=== PATIENT | male | born 1985 | race Caucasian/White ===

== ENCOUNTER → 2017-12-24 | Outpatient (CLI) | payer MEDICAID ==
[2017-12-24 16:54] LABS: ALBUMIN 4.4 g/dL (3.5-5.0); BUN/CREATININE RATIO 18.5 (6.0-26.0); CALCIUM 9.6 mg/dL (8.4-10.2); TOTAL BILIRUBIN 0.4 mg/dL (0.2-1.3); TOTAL PROTEIN 7.9 g/dL (6.3-8.2)
[2017-12-24 17:24] LABS: EOS # 0.1 (0.04-0.40); EOS % 1.6 % (0.0-4.0); HEMATOCRIT 44.4 % (42.0-52.0); HEMOGLOBIN 14.7 g/dL (13.5-18.0); MEAN CELL VOLUME 85 fl (78-100); MEAN CORPUSCULAR HEMOGLOBIN 28 pg (27-31); MEAN CORPUSCULAR HGB CONC 33 g/dL (33-37); MEAN PLATELET VOLUME 10.7 fl (7.4-10.4); MONO # 0.7 (0.20-0.80); NEU # 3.6 (1.40-6.50); PLATELET COUNT 291 K/mm3 (130-400); RED BLOOD COUNT 5.25 M/mm3 (4.20-5.60); RED CELL DISTRIBUTION WIDTH 13.2 % (11.5-14.5); WHITE BLOOD COUNT 6.4 K/mm3 (4.8-10.8)
== END ==
LOC: LAB 16:18
PROVIDERS: Nurse Practitioner Family
DX: R10.11 Right upper quadrant pain (principal)

== ENCOUNTER 2018-06-16 08:57 | Emergency (ER) | payer MEDICAID ==
[~2018-06-16] VITALS: Ht 172.7 cm; Wt 111.8 kg
[2018-06-16] MEDS ORDERED: ZANTAC150 M1 PO (09:34)
[2018-06-16 09:48] LABS: HEMATOCRIT 42.6 % (42.0-52.0); HEMOGLOBIN 14.4 g/dL (13.5-18.0); MEAN CELL VOLUME 85 fl (78-100); MEAN CORPUSCULAR HEMOGLOBIN 29 pg (27-31); MEAN CORPUSCULAR HGB CONC 34 g/dL (33-37); PLATELET COUNT 221 K/mm3 (130-400); RED BLOOD COUNT 5.02 M/mm3 (4.20-5.60); RED CELL DISTRIBUTION WIDTH 13.3 % (11.5-14.5); WHITE BLOOD COUNT 9.3 K/mm3 (4.8-10.8)
[2018-06-16 10:00] LABS: ALBUMIN 4.3 g/dL (3.5-5.0); POTASSIUM 3.7 mmol/L (3.6-5.0); TOTAL BILIRUBIN 0.9 mg/dL (0.2-1.3); TOTAL PROTEIN 7.1 g/dL (6.3-8.2)
[2018-06-16 10:06] LABS: BAND 3 % (0-10); LYMPHOCYTE 13 % (20-51); MONOCYTE 2 % (3-10); NEUTROPHILS 82 % (42-75)
[2018-06-16 10:20] LABS: URINE APPEARANCE HAZY; URINE BILIRUBIN NEGATIVE (NEGATIVE); URINE BLOOD NEGATIVE (NEGATIVE); URINE COLOR AMBER; URINE GLUCOSE NEGATIVE (NEGATIVE); URINE KETONE NEGATIVE (NEGATIVE); URINE LEUKOCYTE ESTERASE NEGATIVE (NEGATIVE); URINE NITRATE NEGATIVE (NEGATIVE); URINE PROTEIN(semi-quant) NEGATIVE (NEGATIVE); URINE UROBILINOGEN NORMAL (NORMAL)
[2018-06-16 10:21] LABS: URINE MUCUS PRESENT (NOT PRESENT)
[2018-06-16] MEDS ORDERED: ZOFRAN ODT4 MG PO (14:35)
[2018-06-16 15:00] VITALS: BP 134/78
== END 2018-06-16 15:00 | disposition home or self-care (01) ==
LOC: ED 08:57
PROVIDERS: Family Medicine
DX: E86.9 Volume depletion, unspecified (principal); B34.9 Viral infection, unspecified
CPT/HCPCS: J1885; J2405; J7030

== ENCOUNTER 2018-09-12 20:57 | Emergency (ER) | payer OTHER, MEDICAID ==
[~2018-09-12] VITALS: Ht 172.7 cm; Wt 113.6 kg
[~2018-09-12 20:57] MED LIST: ZANTAC150 M1 PO; ZOFRAN ODT4 MG PO
[2018-09-12 21:23] LABS: EOS # 0.1 (0.04-0.40); EOS % 0.8 % (0.0-4.0); HEMATOCRIT 45.1 % (42.0-52.0); MEAN CELL VOLUME 84 fl (78-100); MEAN CORPUSCULAR HEMOGLOBIN 28 pg (27-31); MEAN CORPUSCULAR HGB CONC 33 g/dL (33-37); MEAN PLATELET VOLUME 10.3 fl (7.4-10.4); MONO # 0.7 (0.20-0.80); NEU # 5.8 (1.40-6.50); PLATELET COUNT 248 K/mm3 (130-400); RED BLOOD COUNT 5.37 M/mm3 (4.20-5.60); RED CELL DISTRIBUTION WIDTH 13.1 % (11.5-14.5); WHITE BLOOD COUNT 8.6 K/mm3 (4.8-10.8)
[2018-09-12 21:34] LABS: ALBUMIN 4.8 g/dL (3.5-5.0); CALCIUM 9.9 mg/dL (8.4-10.2); POTASSIUM 3.7 mmol/L (3.6-5.0); TOTAL BILIRUBIN 0.6 mg/dL (0.2-1.3); TOTAL PROTEIN 7.9 g/dL (6.3-8.2)
[2018-09-13 00:38] VITALS: BP 142/84
[2018-09-13] MEDS ORDERED: CYCLOBENZAPRINE10 M1 PO (13:48)
== END 2018-09-13 00:20 | disposition home or self-care (01) ==
LOC: ED 20:57
PROVIDERS: Nurse Practitioner Family
DX: R07.89 Other chest pain (principal); F41.9 Anxiety disorder, unspecified; F43.9 Reaction to severe stress, unspecified; Z82.49 Family history of ischemic heart disease and other diseases of the circulatory system
CPT/HCPCS: J7030

== ENCOUNTER 2018-09-13 12:32 | Emergency (ER) | payer OTHER, MEDICAID ==
[2018-09-13] MEDS ORDERED: CYCLOBENZAPRINE10 M1 PO (13:48)
[2018-09-13 13:54] VITALS: BP 147/95
== END 2018-09-13 13:54 | disposition home or self-care (01) ==
LOC: ED 12:32
DX: M54.12 Radiculopathy, cervical region (principal); R07.89 Other chest pain; F41.9 Anxiety disorder, unspecified; F17.200 Nicotine dependence, unspecified, uncomplicated
CPT/HCPCS: J1885; J2360

== ENCOUNTER → 2020-09-04 | Outpatient (CLI) | payer BC ==
[~2020-09-04] MED LIST changes: +CYCLOBENZAPRINE10 M1 PO
== END ==
LOC: LAB 14:15
DX: R05 Cough (principal); R51.9 Headache, unspecified; R09.81 Nasal congestion; R19.7 Diarrhea, unspecified; R53.83 Other fatigue; Z20.828 Contact with and (suspected) exposure to other viral communicable diseases

== ENCOUNTER 2021-02-27 17:06 | Emergency (ER) | payer BC ==
[2021-02-27] MEDS ORDERED: AUGMENTIN 875-1 EAC1 PO (19:13)
[2021-02-27 19:35] VITALS: BP 169/108
[2021-03-22] MEDS ORDERED: CLOTRIMAZOLE30 ML TP (10:09)
== END 2021-02-27 19:35 | disposition home or self-care (01) ==
LOC: ED 17:06
DX: H92.01 Otalgia, right ear (principal); J34.89 Other specified disorders of nose and nasal sinuses; Z20.822 Contact with and (suspected) exposure to COVID-19; Z88.8 Allergy status to other drugs, medicaments and biological substances

== ENCOUNTER 2021-03-01 01:53 | Emergency (ER) | payer BC ==
[~2021-03-01 01:53] MED LIST changes: +AUGMENTIN 875-1 EAC1 PO
[2021-03-01] MEDS ORDERED: AUGMENTIN 875-1 EAC1 PO (02:32)
[2021-03-01] MEDS ORDERED: CILOXAN5 ML OT (02:40)
[2021-03-01] MEDS ORDERED: [UNRECOGNIZED DRUG - OTHER] (02:40)
[2021-03-01 02:54] VITALS: BP 143/101
[2021-03-22] MEDS ORDERED: CLOTRIMAZOLE30 ML TP (10:09)
== END 2021-03-01 02:54 | disposition home or self-care (01) ==
LOC: ED 01:53
DX: H72.92 Unspecified perforation of tympanic membrane, left ear (principal); F17.290 Nicotine dependence, other tobacco product, uncomplicated

== ENCOUNTER 2021-03-15 20:57 | Emergency (ER) | payer BC ==
[~2021-03-15 20:57] MED LIST changes: +CILOXAN5 ML OT; +[UNRECOGNIZED DRUG - OTHER]
[2021-03-15 23:15] LABS: BASO # 0.03 (0.02-0.10); EOS # 0.21 (0.04-0.40); HEMOGLOBIN 14.3 g/dL (13.5-18.0); LYMPH# 2.53 (1.50-4.00); MEAN CELL VOLUME 84 fl (78-100); MEAN CORPUSCULAR HEMOGLOBIN 28 pg (27-31); MEAN CORPUSCULAR HGB CONC 33 g/dL (33-37); MONO # 0.78 (0.20-0.80); NEU # 7.01 (1.40-6.50); PLATELET COUNT 293 K/mm3 (130-400); RED BLOOD COUNT 5.11 M/mm3 (4.20-5.60); RED CELL DISTRIBUTION WIDTH 12.8 % (11.5-14.5); WHITE BLOOD COUNT 10.6 K/mm3 (4.8-10.8)
[2021-03-15 23:25] LABS: ALBUMIN 4.4 g/dL (3.5-5.0); POTASSIUM 3.8 mmol/L (3.5-5.1)
[2021-03-15 23:27] LABS: CALCIUM 9.9 mg/dL (8.3-10.5)
[2021-03-15 23:28] LABS: TOTAL PROTEIN 7.6 g/dL (6.4-8.3)
[2021-03-15 23:30] LABS: TOTAL BILIRUBIN 0.3 mg/dL (0.2-1.2)
[2021-03-16 00:20] VITALS: BP 169/103
[2021-03-22] MEDS ORDERED: CLOTRIMAZOLE30 ML TP (10:09)
== END 2021-03-16 00:20 | disposition home or self-care (01) ==
LOC: ED 20:57
PROVIDERS: Nurse Practitioner Family
DX: H60.93 Unspecified otitis externa, bilateral (principal); J02.9 Acute pharyngitis, unspecified; B27.90 Infectious mononucleosis, unspecified without complication; F17.290 Nicotine dependence, other tobacco product, uncomplicated

== ENCOUNTER 2021-09-25 23:17 | Emergency (ER) | payer BC ==
[~2021-09-25] VITALS: Ht 182.9 cm; Wt 131.8 kg
[~2021-09-25 23:17] MED LIST changes: +CLOTRIMAZOLE30 ML TP
[2021-09-26] MEDS ORDERED: NORCO 325 MG-51 TA1 PO (00:48)
[2021-09-26 01:05] VITALS: BP 133/85
== END 2021-09-26 01:05 | disposition home or self-care (01) ==
LOC: ED 23:17
DX: S93.401A Sprain of unspecified ligament of right ankle, initial encounter (principal); W10.9XXA Fall (on) (from) unspecified stairs and steps, initial encounter
CPT/HCPCS: J1885; L4386

== ENCOUNTER → 2022-11-10 | Outpatient (CLI) | payer BC ==
[~2022-11-10] MED LIST changes: +NORCO 325 MG-51 TA1 PO
== END ==
LOC: RAD 11:00
DX: R00.2 Palpitations (principal)

== ENCOUNTER → 2024-08-19 | Outpatient (CLI) | payer BC | LOC: RAD 07:30 | DX: R68.89 Other general symptoms and signs (principal); N50.82 Scrotal pain ==

== ENCOUNTER 2025-01-15 13:06 | Emergency (ER) | payer OTHER, BC ==
[~2025-01-15] VITALS: Ht 172.7 cm; Wt 127.3 kg
[2025-01-15 14:08] LABS: BASO # 0.02 K/mm3 (0.02-0.10); EOS # 0.13 K/mm3 (0.04-0.40); HEMATOCRIT 44.8 % (42.0-52.0); HEMOGLOBIN 14.6 g/dL (13.5-18.0); LYMPH# 1.53 K/mm3 (1.50-4.00); MEAN CELL VOLUME 84 fl (78-100); MEAN CORPUSCULAR HEMOGLOBIN 27 pg (27-31); MEAN CORPUSCULAR HGB CONC 33 g/dL (33-37); MEAN PLATELET VOLUME 10.4 fl (7.4-10.4); MONO # 0.41 K/mm3 (0.20-0.80); NEU # 4.56 K/mm3 (1.40-6.50); PLATELET COUNT 262 K/mm3 (130-400); RED BLOOD COUNT 5.32 M/mm3 (4.20-5.60); WHITE BLOOD COUNT 6.7 K/mm3 (4.8-10.8)
[2025-01-15 14:13] LABS: ALBUMIN 4.4 g/dL (3.5-5.0); SODIUM 136 mmol/L (136-145)
[2025-01-15 14:14] LABS: CALCIUM 9.7 mg/dL (8.3-10.5)
[2025-01-15 14:15] LABS: GLUCOSE 84 mg/dL (75-110)
[2025-01-15 14:16] LABS: CARBON DIOXIDE 19 mmol/L (22-29); TOTAL PROTEIN 7.8 g/dL (6.4-8.3)
[2025-01-15 14:17] LABS: TOTAL BILIRUBIN 0.4 mg/dL (0.2-1.2)
[2025-01-15 14:21] LABS: AST-SGOT 16 U/L (5-34)
[2025-01-15 14:22] LABS: ALT/SGPT 33 U/L (0-55)
[2025-01-15] MEDS ORDERED: Acetaminophen 500 MG TAB PO ONE (14:45)
[2025-01-15 14:53] LABS: ALCOHOL IN-HOUSE < 10 mg/dL (<10)
[2025-01-15 14:54] LABS: PROTHROMBIN TIME 11.6 SECONDS (9.0-12.0)
[2025-01-15 15:06] LABS: PH-URINE 5.5 (5.0 - 8.0); URINE APPEARANCE CLEAR (CLEAR); URINE BILIRUBIN NEGATIVE (NEGATIVE); URINE BLOOD NEGATIVE (NEGATIVE); URINE COLOR YELLOW (YELLOW); URINE GLUCOSE NEGATIVE (NEGATIVE); URINE KETONE 1+ (NEGATIVE); URINE LEUKOCYTE ESTERASE NEGATIVE (NEGATIVE); URINE NITRATE NEGATIVE (NEGATIVE); URINE PROTEIN(semi-quant) NEGATIVE (NEGATIVE); URINE WBC 0-1 /hpf (0-3)
[2025-01-15 15:07] LABS: URINE MUCUS PRESENT (NOT PRESENT)
[2025-01-15 15:20] VITALS: BP 130/86
== END 2025-01-15 15:23 | disposition home or self-care (01) ==
LOC: ED 13:06
PROVIDERS: Physician Assistant
DX: M25.512 Pain in left shoulder (principal); N20.0 Calculus of kidney; R51.9 Headache, unspecified; R68.84 Jaw pain; V89.2XXA Person injured in unspecified motor-vehicle accident, traffic, initial encounter; Y92.410 Unspecified street and highway as the place of occurrence of the external cause